=== PATIENT | female | born 1945 | race Caucasian/White ===

== ENCOUNTER 2022-06-18 14:06 | Outpatient (CLI) | payer MEDICARE, SELFPAY | END 2022-06-18 14:07 | disposition home or self-care (01) | LOC: AMB 06-26 18:50 | PROVIDERS: PCP Family Medicine; Visit Provider Emergency Medicine Emergency Medical Services | DX: R06.02 Shortness of breath (principal) | CPT/HCPCS: A0425; A0429 ==

== ENCOUNTER 2022-06-18 14:36 | Emergency (ER) | payer MEDICARE, SELFPAY ==
[2022-06-18] VITALS (7 sets, daily range): BP systolic 128–134; BP diastolic 71–89; PULSE 116–124; RESP 22–32; TEMP 36.6; O2SAT 88–92; BMI 34.8
--- NOTE | 2022-06-18 14:55 | CRLHL7_ITS ---
For Patients: As a result of the Century Cures Act, medical imaging exams and procedure reports are released immediately into your electronic medical record. You may view this report before your referring provider. If you have questions, please contact your health care provider. Indication: Shortness of breath Technique: Portable one-view sitting AP chest x-ray. Comparison: None available Findings: Streaky opacities in the left lower lung may represent fibrosis or non consolidative infiltrate. The lungs are otherwise clear. No pleural fluid or pneumothorax. Heart size normal. January unremarkable. 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 Impression: 1. Minimal streaky opacities in the left base which may be chronic. 2. No other cardiopulmonary findings identified. Dictated by Robin Young MD @ 06/18/2022 4:00:40 PM (Electronically Signed)
--- NOTE | 2022-06-18 14:57 | ED_ITS ---
HPI - General Adult General Chief complaint: Shortness of Breath/Dyspnea Stated complaint: Difficulty Breathing Time Seen by Provider: 06/18/22 14:49 History of Present Illness HPI narrative: This 77-year-old female comes in reporting cough, shortness of breath, and generalized malaise. She states that these symptoms began this morning about 4 hours prior to arrival. She does have a smoker's cough and continues to smoke. I asked her about her smoking and she says yes she smokes and she is not going to quit. She arrives with some tachycardia and increased respiratory rate but is maintaining sufficient oximetry on room air. She is afebrile. Related Data Home Medications Medication Instructions Recorded Confirmed lisinopril 20 1 tab PO DAILY 06/18/22 06/18/22 mg-hydrochlorothiazide 25 mg tablet warfarin 2 mg tablet 2 mg PO DAILY 06/18/22 06/18/22 Previous Rx's Medication Instructions Recorded albuterol sulfate 90 mcg/actuation 2 inh inhalation Q4-6H PRN #1 ea 06/18/22 breath activated powder inhaler Allergies Allergy/AdvReac Type Severity Reaction Status Date / Time No Known Drug Allergies Allergy Verified 06/18/22 14:47 Review of Systems Status of ROS: Reports: 10 or more systems reviewed and unremarkable except as noted in History and below Narrative: Constitutional: No fevers, no weight gain or loss. Eyes: No discharge. No vision changes. HENT: No congestion, no sore throat, no ear pain. Cardiovascular: No chest pain, no palpitations. Respiratory: She reports a cough and shortness of breath. Gastrointestinal: No abdominal pain, no vomiting, no diarrhea. Genitourinary: No dysuria, no hematuria. Musculoskeletal: Normal range of motion. Skin: No rashes, no pruritis. Neurological: No dizziness, weakness, sensory change, speech change. Endo/Heme/Allergies: No bruising or bleeding. No polydipsia. Pysch: no suicidality, no anxiety, no insomnia. All other systems reviewed and are negative. PFSH PFS Social History Smoking Status: Current every day smoker What tobacco products do you use: cigarettes Do you use any of these nicotine containing products: None Second hand tobacco smoke exposure: No How often do you have a drink containing alcohol: never How often do you have six or more drinks on one occasion: Never AUDIT-C Alcohol total score: 0 Non-prescribed substance use: denies use Exam Narrative: Exam Narrative: Constitutional: Well-developed, well-nourished, no acute distress. HEENT: Normocephalic, atraumatic. Neck: Normal range of motion. Nontender. Supple. Heart: Regular. No murmurs. Tachycardia. Intact distal pulses. Lungs: Decreased air movement bilaterally. Use of accessory muscles for breathing. Abdomen: Normal bowel sounds. Nontender. No rebound tenderness. Genitalia: Deferred. Back: No midline tenderness. Normal range of motion. Extremities: Normal range of motion. No injury. No pedal edema. Skin: Intact. No rash. Warm. No erythema or pallor. Neurologic: No altered sensation. No weakness. Alert and oriented. Psychiatric: No suicidality. No anxiety or depression. No insomnia. Nursing notes and vitals signs are reviewed. Const: Vital Signs, click to edit/add: Vital Signs - 24 hr 06/18/22 14:41 Temperature 97.8 F Pulse Rate [Pulse Oximeter] 124 H Respiratory Rate 32 H Blood Pressure [Ri ght Upper Arm] 128/77 Pulse Oximetry 92 Oxygen Delivery Me thod Room Air Course Vital Signs Vital signs: Initial Vital Signs Temperature 97.8 F 06/18/22 14:41 Temperature Source Temporal Artery Scan 06/18/22 14:41 Pulse Rate 124 H 06/18/22 14:41 Pulse Rhythm 06/18/22 14:41 Respiratory Rate 32 H 06/18/22 14:41 Blood Pressure 128/77 06/18/22 14:41 Blood Pressure Mean 94 06/18/22 14:41 Blood Pressure Position Semi-Fowlers 06/18/22 14:41 Pulse Oximetry 92 06/18/22 14:41 Oxygen Delivery Method 06/18/22 14:41 Vital Signs Temperature 97.8 F 06/18/22 14:41 Pulse Rate 124 H 06/18/22 14:41 Respiratory Rate 32 H 06/18/22 14:41 Blood Pressure 128/77 06/18/22 14:41 Pulse Oximetry 92 06/18/22 14:41 Oxygen Delivery Method 06/18/22 14:41 Temperature 97.8 F 06/18/22 14:41 Pulse Rate 124 H 06/18/22 14:41 Respiratory Rate 32 H 06/18/22 14:41 Blood Pressure 128/77 06/18/22 14:41 Pulse Oximetry 92 06/18/22 14:41 Oxygen Delivery Method 06/18/22 14:41 Medical Decision Making MDM Narrative Medical decision making narrative: This patient comes in reporting symptoms of upper respiratory infection that began this morning. She does arrive with sufficient oximetry and this may be her baseline oximetry at 92% on room air. She is a smoker and states that she is not going to quit. She does arrive with some tachycardia and tachypnea and is using accessory muscles for breathing. She did receive a few nebulizer treatments EN route here and is not sure if those helped her much. An IV was established where she received Solu-Medrol 125 mg. Chest x-ray shows no acute findings. Lab results returned positive for RSV. She states that her was positive for RSV. She continues to maintain sufficient oximetry but is compensating with increased heart rate and respiratory rate. I discussed admission into the hospital which she declined. She states that she wants to go home. I advised her to return if symptoms are worsening. Lab Data Labs: Lab Results 06/18/22 06/18/22 06/18/22 Range/Units 15:15 15:17 15:17 WBC 11.34 H (4.50-11.00) K/uL RBC 4.20 (4.00-5.20) m/uL Hgb 14.4 (12.0-16.0) gm/dL Hct 43.6 (33.0-51.0) % MCV 104 H (80-100) fL MCH 34 (26-34) pg MCHC 33 (32-36) gm/dL RDW Coeff of [place] 13.0 (11.5-15.5) % Plt Count 260 (140-440) K/uL Neut % (Auto) 72.9 H (42.0-72.0) % Lymph % (Auto) 14.4 L (20-44) % [place] % (Auto) 12.3 H (0.0-11.0) % Eos % (Auto) 0.1 (0.0-7.0) % Baso % (Auto) 0.1 (0.0-3.0) % Neut # (Auto) 8.30 H (1.7-7.0) K/uL Lymph # (Auto) 1.60 (0.90-2.90) K/uL [place] # (Auto) 1.40 H (0.00-0.90) K/UL Eos # (Auto) 0.00 (0.00-0.50) K/uL Baso # (Auto) 0.00 (0.00-0.30) K/uL Sodium 141 (135-149) mmol/L Potassium 3.8 (3.6-5.1) mmol/L Chloride 109 (96-114) mmol/L SARS-CoV-2 (PCR) Negative SARS-CoV-2 (Negative) Influenza Type A (PCR) Negative PCR FLU A (Negative) Influenza Type B (PCR) Negative PCR FLU B (Negative) RSV (PCR) POSITIVE PCR RSV A (Negative) Imaging Data Chest x-ray: Radiologist's impression: 1. Minimal streaky opacities in the left base which may be chronic. 2. No other cardiopulmonary findings identified. ECG Data Attestation: I personally reviewed and interpreted this ECG as follows: Interpretation: Sinus tachycardia. Rate is 120 beats per minute. There are no specific ST or T-wave abnormalities. Discharge Plan Discharge Clinical Impression: RSV infection, COPD (chronic obstructive pulmonary disease) Patient Disposition: Home, Self-Care Condition: Unchanged Additional Instructions: Use medication as prescribed. Return to emergency department if worsening symptoms occur. Prescriptions: New albuterol sulfate 90 mcg/actuation aerosol powdr breath activated 2 inh inhalation Q4-6H PRNQty: 1 0RF No Action lisinopril-hydrochlorothiazide 20-25 mg tablet 1 tab PO DAILY warfarin 2 mg tablet 2 mg PO DAILY Follow Up/Referrals: Samuel Peterson MD [Primary Care Provider] - Stand Alone Forms: [employer] Info Instructions
[2022-06-18] MEDS: METHYLPREDNISOLONE SOD SUCC 62.5 MG/ML (125) 125 MG IVP (15:00)
[2022-06-18 15:48] LABS: Basophils Percent Auto 0.1 % (0.0-3.0); Eosinophils Percent Auto 0.1 % (0.0-7.0); Hematocrit 43.6 % (33.0-51.0); Hemoglobin* 14.4 gm/dL (12.0-16.0); Immature Granulocytes Pct Auto 0.2 %; Lymphocytes Percent Auto 14.4 % (20-44); Mean Corpuscular HGB Conc 33 gm/dL (32-36); Mean Corpuscular Hemoglobin 34 pg (26-34); Mean Corpuscular Volume 104 fL (80-100); Monocytes Percent Auto 12.3 % (0.0-11.0); Neutrophils Percent Auto 72.9 % (42.0-72.0); Platelet Count* 260 K/uL (140-440); White Blood Count* 11.34 K/uL (4.50-11.00)
[2022-06-18 16:05] LABS: Slide Review Reflex No
[2022-06-18 16:07] LABS: PCR FLU A Negative PCR FLU A (Negative); PCR FLU B Negative PCR FLU B (Negative); SARS PCR* Negative SARS-CoV-2 (Negative)
[2022-06-18 16:08] LABS: PCR RSV POSITIVE PCR RSV (Negative)
[2022-06-18 16:13] LABS: Chloride* 109 mmol/L (96-114); Potassium* 3.8 mmol/L (3.6-5.1); Sodium* 141 mmol/L (135-149)
[2022-06-18 16:16] LABS: Carbon Dioxide* 23 mmol/L (20-32); Creatinine* 1.4 mg/dL (0.5-1.5); Estimated Glomerular Filt Rate 38 ml/min
[2022-06-18 16:17] LABS: Blood Urea Nitrogen* 35 mg/dL (7-30); Calcium* 9.9 mg/dL (8.4-10.6); Glucose* 115 mg/dL (60-115)
--- NOTE | 2022-06-18 17:09 | ED.NURSE ---
[facility] pharmacy called to clarify rx order. Clarified with Susu LEWIS.
== END 2022-06-18 16:32 | disposition home or self-care (01) ==
PROVIDERS: Emergency Provider Emergency Medicine Emergency Medical Services; PCP Family Medicine
DX: J44.9 Chronic obstructive pulmonary disease, unspecified (principal); B97.4 Respiratory syncytial virus as the cause of diseases classified elsewhere
CPT/HCPCS: 36415; 71045; 80048; 85025; 87502; 87631; 87634; 87635; 93005; 96374; 99285; J2930

== ENCOUNTER 2023-06-26 12:04 | Outpatient (CLI) | payer MEDICARE, SELFPAY | END 2023-06-26 12:05 | disposition home or self-care (01) | LOC: AMB 07-25 09:56 | PROVIDERS: Visit Provider Family Medicine ==